=== PATIENT | male | born 1955 | race Caucasian/White ===

== ENCOUNTER 2019-04-18 13:57 | Emergency (ER) | payer OTHER ==
[2019-04-18] MEDS ORDERED: HYDROmorphone 1 MG/ML Syringe IVPUSH ONE (14:18)
[2019-04-18] MEDS ORDERED: HYDROmorphone 1 MG/ML Syringe ONE (14:20)
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
[2019-04-18] MEDS ORDERED: Bacitracin Oint 28.35 GM Tube TOP STA (14:30)
== END 2019-04-18 15:15 | disposition home or self-care (01) ==
LOC: JP.ED 13:57
DX: T22.20XA Burn of second degree of shoulder and upper limb, except wrist and hand, unspecified site, initial encounter (principal); I10 Essential (primary) hypertension; E11.9 Type 2 diabetes mellitus without complications; X08.8XXA Exposure to other specified smoke, fire and flames, initial encounter; Y93.89 Activity, other specified
CPT/HCPCS: 16020; 96374; 99283; J1170